=== PATIENT | female | born 1940 | race Caucasian/White ===

== ENCOUNTER → 2016-04-28 | Day surgery (SDC) | payer MEDICARE, OTHER ==
[2016-04-26 12:30] VITALS: BMI 32.7
[~2016-04-28] MED LIST: ATROPINE OPHTH SOLN 1% 5ML BTL LEFT EYE ONE; BALANCED SALT IRRIG SOLN COMB2 15 ML IRRIG.SOLN IRRIGATION ONE; EPINEPHrine (PF) 0.3 ML in BALANCED SALT IRRIG SOLN COMB2 500 ML IRRIGATION ONE; FLUORESCEIN STRIPS 1 MG STRIP LEFT EYE ONE; HYALURONATE SODIUM INTRAOCULAR 1 EACH SYRINGE (12MG/ML) INTRAOCULA ONE; LACTATED RINGERS 1,000 ML IV ONE; LACTATED RINGERS 1,000 ML IV SCH; LIDOCAINE 1% (PF) 10MG/ML VIAL SQ ONE; MIDAZOLAM 2 MG/2 ML VIAL ONE; MOXIFLOXACIN HCL 0.5% DROPS 3 ML BTL OP ONE; TETRACAINE 0.5% OPHTH (PF) DROPS 4 ML BTL OP ONE; TIMOLOL 0.5% OPHTH SOLN (PF) 0.2 ML DROPERETTE OP ONE; fentaNYL (PF) 50 MCG/ML 2 ML AMP ONE
[2016-04-28] MEDS: CYCLOPENTOLATE 1% OPHTH SOLN 2 ML BTL OP ONE ×3 (07:20→07:32)
[2016-04-28] MEDS: PHENYLEPHRINE 2.5% OPHTH DRP 2ML OP NR ×3 (07:23→07:35)
[2016-04-28 07:45] LABS: Glucose,Whole Blood 85 mg/dL (75-99)
[2016-04-28 07:47] VITALS: RESP 16; TEMP 97.1
--- NOTE | 2016-04-28 09:55 | P.OP ---
Date of Procedure: 04/28/16 Preoperative Diagnosis: NS & CS Postoperative Diagnosis: same Procedure(s) Performed: PIOL, OS Implants: AO1UV 22.50 Anesthesia: MAC Surgeon: Vladimir Bolanos Estimated Blood Loss (ml): 0 Pathology: none sent Condition: stable Disposition: same day Indications for Procedure: vision blurry Operative Findings: no complications
[2016-04-28 10:29] VITALS: BP 109/65; PULSE 50
--- NOTE | 2016-04-28 21:42 | OP ---
DATE OF SERVICE: SURGEON: SHABBIR FINE MD MENAGERIE SUPERINTENDENT: PREOPERATIVE DIAGNOSES: Nuclear sclerosis and cortical sclerosis POSTOPERATIVE DIAGNOSES: Nuclear sclerosis and cortical sclerosis OPERATION: Phacoemulsification of cataract and intraocular lens implant of the left eye. ANESTHESIA: Topical. ESTIMATED BLOOD LOSS: None. SPECIMENS REMOVED: None. COMPLICATIONS: OPERATIVE FINDINGS: DESCRIPTION OF PROCEDURE: NARRATIVE: After obtaining the appropriate consent, the patient was brought to the operating room. There she was placed under cardiac monitoring, prepped and draped in the usual sterile manner. She was approached from her left temporal side. A 5.5 mm Azalia ring inked in gentian rut was then placed centrally on her eye. At the 5:00 position a 1.1 mm stab blade was used to create a paracentesis port. Through this opening, 1% Xylocaine MPF 50-50 mix with balance salt solution was injected into the anterior chamber. This was followed by stabilization of the anterior chamber with Amvisc. At the 3:00 position a 2.5 mm HUMI 2.75 mm jt keratome was used to create a patent cell self-sealing corneal flap incision in a Langerman fashion. Through this opening, a cystotome was used to begin a continuous tear capsulorrhexis, which was completed using the Utrata forceps. Care were taken care was taken to ensure the size of the rhexis was at least the size of the alaina previously placed on the cornea. Hydrodissection and hydrodelineation of the lens was accomplished with balanced salt solution. Phacoemulsification of the lens utilizing phaco chop was accomplished in 14 seconds at 9% power. Additional Xylocaine MPF was instilled into the anterior chamber. This was followed by removal of the remaining cortical material under irrigation and aspiration as well as careful polishing of the posterior capsule in capsule vacuum mode. Additional Amvisc was again used to stabilize the capsular bag, and using the pappose [place] capsular polishing instruments, care was taken to ensure removal of all noted cortical debris from the equator of the capsular bag. Additional Amvisc was then used to stabilize the anterior chamber. The temporal incision was enlarged slightly with the jt knife and a [employer] Crystal lens model AO1UV 22.5 diopter posterior chamber intraocular lens was then injected into the capsular bag without difficulty. The lens was rotated approximately 270 degrees ensuring that there was no residual cortical material in the equator and the irrigation/aspiration instrument was brought in to remove the remaining viscoelastic material from in and around the intraocular lens in the anterior chamber. The eye was brought to normal intraocular pressure through the paracentesis port. The incisions were confirmed watertight with a fluorescein strip. She then received 2 drops of 0.5% timolol followed by 2 drops of Vigamox as well as drop of 1% atropine. She was then lightly patched and shielded in the usual manner. There were no complications from the procedure. She tolerated the procedure well and was returned to outpatient recovery in good condition.
== END | disposition home or self-care (01) ==
LOC: OR 06:58
PROVIDERS: ATTEND Ophthalmology
DX: H25.13 Age-related nuclear cataract, bilateral (principal); H25.013 Cortical age-related cataract, bilateral; H04.123 Dry eye syndrome of bilateral lacrimal glands; H52.4 Presbyopia; H52.13 Myopia, bilateral; E11.69 Type 2 diabetes mellitus with other specified complication; E11.65 Type 2 diabetes mellitus with hyperglycemia; I10 Essential (primary) hypertension; E78.5 Hyperlipidemia, unspecified; E07.9 Disorder of thyroid, unspecified; Z79.4 Long term (current) use of insulin; Z79.899 Other long term (current) drug therapy
CPT/HCPCS: 66984; V2632; V2788; J2250; J0171; J3010; J2001; 99152; 99153

== ENCOUNTER → 2017-09-08 | Outpatient (CLI) | payer MEDICARE ==
--- NOTE | 2017-09-08 18:28 | BD ---
EXAMINATION TYPE: Axial Bone Density DATE OF EXAM: 09/08/2017 CLINICAL HISTORY: Height: 62 inches Weight: 179 FRAX RISK QUESTIONS: Alcohol (3 or more units per day): no Family History (Parent hip fracture): no Glucocorticoids (More than 3mos): no (Ex: prednisone, prednisolone, methylprednisolone, dexamethasone, and hydrocortisone). History of Fracture in Adulthood: finger Secondary Osteoporosis: 1. Type 1 Diabetes: no 2. Hyperthyroidism: no 3. Menopause before 45: hysterectomy age 38 4. Malnutrition: no 5. Chronic liver disease: no Rheumatoid Arthritis: no Current Tobacco Use: no RISK FACTORS HISTORY OF: Family History of Osteoporosis: unsure Active: no Diet low in dairy products/other sources of calcium: no Postmenopausal woman: yes Take estrogen and/or progesterone medications: not now How long: hormonal contraceptives about 6 months Lost more than 2 inches in height since high school: no Frequent falls: no Poor Health: no Hyperparathyroidism: no Adrenal Insufficiency: no MEDICATIONS: Prednisone or other steroids: no Thyroid Medications: yes Which medication: Synthroid How Long: over 45 years Osteoporosis Medications: not now Which medication: Actonel How Long: unsure Additional Medications: insulin , lisinopril, lovastatin, Novalog, Levamir, D3 & calcium Additional History: type II diabetic; right knee replacement EXAM MEASUREMENTS: Bone mineral densitometry was performed using the VivaSmart System. Bone mineral density as measured about the Lumbar spine is: ----- L1-L4(G/cm2): 1.345 T Score Values are as follows: ----- L2: 2.5 ----- L3: 2.5 ----- L4: 0.3 ----- L1-L4: 1.4 Bone mineral density has: Decreased -2.8% since study of: 07/27/2013 Bone mineral density about the R hip (g/cm2): 0.984 Bone mineral density about the L hip (g/cm2): 0.952 T Score values are as follows: -----R Neck: -0.4 -----L Neck: -0.6 -----R Total: 0.3 -----L Total: 0.4 Bone mineral density has: Decreased -6.8% since study of: 07/27/2013 IMPRESSION: Normal (Values between +1 and -1 indicate normal bone mass). Consider repeating this study in 5 year s or sooner if there is some new clinical indication. NOTE: T-SCORE=SD OF THE YOUNG ADULT MEAN.
--- NOTE | 2017-09-12 12:46 | MM ---
Reason for exam: screening (asymptomatic). Last mammogram was performed 1 year and 2 months ago. History: Patient is postmenopausal. Family history of breast cancer in 2 maternal aunts and breast cancer in sister at age 60. Benign right mammotome panel of the right breast, May 18, 2006. Cyst aspiration of the left breast, 1979. 2 excisional biopsies of the left breast, 1979. Took hormonal contraceptives for 6 months. Physical Findings: A clinical breast exam by your physician is recommended on an annual basis and results should be correlated with mammographic findings. MG 3D Screening Mammo W/Cad Bilateral CC and MLO view(s) were taken. Prior study comparison: June 24, 2016, mammogram, performed at [facility]. July 31, 2015, bilateral MG 3d screening mammo w/cad. July 29, 2014, bilateral MG screening mammo w CAD. There are scattered fibroglandular densities. No significant changes when compared with prior studies. ASSESSMENT: Benign, BI-RAD 2 RECOMMENDATION: Routine screening mammogram of both breasts in 1 year.
== END | disposition home or self-care (01) ==
LOC: RADMAMWWP 10:12
PROVIDERS: ATTEND Internal Medicine
DX: Z12.31 Encounter for screening mammogram for malignant neoplasm of breast (principal); Z78.0 Asymptomatic menopausal state
CPT/HCPCS: 77063; 77067; 77080

== ENCOUNTER → 2018-11-07 | Outpatient (CLI) | payer MEDICARE ==
[2018-11-07 16:48] LABS: Basophils % (A) 1 %; Eosinophils # (A) 0.1 k/uL (0-0.7); Eosinophils % (A) 3 %; HCT 35.2 % (34.0-46.0); Lymphocytes # (A) 1.8 k/uL (1.0-4.8); Lymphocytes % (A) 36 %; MCH 33.7 pg (25.0-35.0); MCHC 34.1 g/dL (31.0-37.0); Mean Platelet Volume 6.8; Monocytes # (A) 0.4 k/uL (0-1.0); Monocytes % (A) 8 %; Neutrophils # (A) 2.5 k/uL (1.3-7.7); Neutrophils % (A) 49 %; Platelet Count 164 k/uL (150-450); RBC 3.56 m/uL (3.80-5.40)
[2018-11-07 17:04] LABS: Potassium 4.8 mmol/L (3.5-5.1)
== END | disposition home or self-care (01) ==
LOC: LABPAT 16:21
PROVIDERS: ATTEND Surgery
DX: Z01.812 Encounter for preprocedural laboratory examination (principal); I73.9 Peripheral vascular disease, unspecified
CPT/HCPCS: 36415; 80051; 82565; 84520; 85025

== ENCOUNTER 2018-11-17 08:58 | Day surgery (SDC) | payer MEDICARE ==
[2018-11-10 16:22] VITALS: BMI 32.9
[~2018-11-17 08:58] MED LIST changes: +ALPRAZolam 0.25 MG TAB PO PRN; +ASPIRIN 325 MG TAB PO STA; -ATROPINE OPHTH SOLN 1% 5ML BTL LEFT EYE ONE; -BALANCED SALT IRRIG SOLN COMB2 15 ML IRRIG.SOLN IRRIGATION ONE; -EPINEPHrine (PF) 0.3 ML in BALANCED SALT IRRIG SOLN COMB2 500 ML IRRIGATION ONE; -FLUORESCEIN STRIPS 1 MG STRIP LEFT EYE ONE; -HYALURONATE SODIUM INTRAOCULAR 1 EACH SYRINGE (12MG/ML) INTRAOCULA ONE; -LACTATED RINGERS 1,000 ML IV ONE; -LACTATED RINGERS 1,000 ML IV SCH; -LIDOCAINE 1% (PF) 10MG/ML VIAL SQ ONE; -MIDAZOLAM 2 MG/2 ML VIAL ONE; -MOXIFLOXACIN HCL 0.5% DROPS 3 ML BTL OP ONE; +SODIUM CHLORIDE 0.9% 1,000 ML in EMPTY BAG 1 BAG IV ONE; -TETRACAINE 0.5% OPHTH (PF) DROPS 4 ML BTL OP ONE; -TIMOLOL 0.5% OPHTH SOLN (PF) 0.2 ML DROPERETTE OP ONE; -fentaNYL (PF) 50 MCG/ML 2 ML AMP ONE
[2018-11-17 09:17] VITALS: TEMP 97.8
[2018-11-17 09:33] LABS: Glucose,Whole Blood 125 mg/dL (75-99)
[2018-11-17] MEDS ORDERED: IOPAMIDOL-250 100ML BTL INTRAARTER ONE ×2 (10:30)
--- NOTE | 2018-11-17 10:37 | P.OP ---
Date of Procedure: 11/17/18 Indications for Procedure: 78-year-old female who originally presented to the office secondary to lower extremity pain with ambulation. Patient states she is unable to ambulate farther then 100 feet without significant discomfort in her left calf. Patient states this feels exactly like it did previously prior to her bypass surgery. She underwent arterial Doppler which demonstrated ABIs of 0.48 on the left. She presents today for aortogram with bilateral lower extremity runoff. 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 Iliacs: Bilateral common iliac, external iliac and internal iliac arteries are patent with mild atherosclerotic disease without stenosis Femorals: Bilateral common femoral arteries are patent with mild atherosclerotic disease. The right SFA is occluded chronically with a right femoral popliteal bypass graft that is patent. Left SFA is patent at the takeoff as well as the profundus femoris with minimal atherosclerotic disease. Distal SFA on the left after Buck's canal demonstrates chronic total occlusion extending across the popliteal to the below-knee tibioperoneal trunk. Popliteal: Right popliteal artery is patent. Distal aspect of the anastomosis shows some mild narrowing. Left popliteal artery is occluded with reconstitution he had the knee. Tibials: Patent bilateral tibial arteries below knee after reconstitution of the left with extension down to the ankle with two-vessel runoff. Operative narrative: After written informed consent was obtained the patient all risks benefits competitions were described the patient is brought to the Administrative Hearing Officer and laid in a supine position. The area of the left arm was prepped and draped in the usual sterile fashion. Local anesthesia with moderate sedation was performed with continuous pulse ox monitoring and EKG monitoring. Utilizing ultrasound the left brachial artery was visualized and shown to be patent without any significant plaque. Utilizing a multipurpose needle under ultrasound guidance the artery was accessed. Guidewire was placed followed by 5-Indonesian sheath. 035 Glidewire was then placed into the aorta followed by pigtail catheter. Angiogram was then obtained of the aorta. Catheter was then placed at the bifurcation and lower extremity runoffs were obtained. Once completed all guidewires, catheters. Sheath was accidently pulled and patient developed a hematoma. Pressure was placed and bleeding was controlled. Pressure dressing was placed and patient will be monitored in recovery for 6 hours and then we will obtain formal ultrasound of the arm.
--- NOTE | 2018-11-17 12:22 | IR ---
Fluoroscopy HISTORY: Peripheral vascular occlusive disease 4.7 minutes fluoroscopy time supplied to the referring clinician. 89 intraoperative C-arm images doc ument the procedure. See dictated report from vascular surgery.
[2018-11-17 12:59] VITALS: PULSE 52
--- NOTE | 2018-11-17 16:49 | US ---
EXAMINATION TYPE: US upper ext pseudo LT DATE OF EXAM: 11/17/2018 COMPARISON: NONE CLINICAL HISTORY: left brachial artery pseudoaneurysm. Pt had recent procedure with right brachial ar lila approach Left medial upper arm scanned to visualize left brachial artery post procedure/ Grayscale, color Doppler imaging performed at the level of the patient's puncture site. Blood flow vi sualized distal to puncture site/no evident pseudoaneurysm. Mixed echogenicity at the level of the puncture site within the soft tissues may represent a hematoma . Triphasic waveform noted within the left brachial artery. No evident arteriovenous fistula. IMPRESSION: Correlate to exclude brachial sheath hematoma. No evident pseudoaneurysm.
--- NOTE | 2018-11-17 16:53 | P.PN ---
Progress Note - Text Progress Note Date: 11/17/18 Reviewed ultrasound of left upper extremity. Hematoma noted but no evidence of active bleeding or pseudoaneurysm. Left upper extremity is stable and patients states pain is improved now a 06/11. Will continue pressure dressing and patient ok for d/c home. Will have her follow up in office Tuesday. Patient to call the office Tuesday.
[2018-11-17 17:45] VITALS: BP 127/77; RESP 20
== END 2018-11-17 17:30 | disposition home or self-care (01) ==
LOC: CATHCVL 08:58
PROVIDERS: ATTEND Surgery
DX: I70.212 Atherosclerosis of native arteries of extremities with intermittent claudication, left leg (principal); I70.92 Chronic total occlusion of artery of the extremities; Z82.49 Family history of ischemic heart disease and other diseases of the circulatory system; Z82.0 Family history of epilepsy and other diseases of the nervous system
CPT/HCPCS: 36200; 75625; 75716; 76937; 93931; C1894; C1769 ×3; Q9966

== ENCOUNTER → 2020-01-02 | Outpatient (CLI) | payer MEDICARE ==
--- NOTE | 2020-01-04 10:23 | MM ---
Reason for exam: screening (asymptomatic). Last mammogram was performed 1 year and 3 months ago. History: Patient is postmenopausal. Family history of breast cancer in 2 maternal aunts and breast cancer in sister at age 60. Benign right mammotome panel of the right breast, May 18, 2006. Cyst aspiration of the left breast, 1979. 2 excisional biopsies of the left breast, 1979. Took hormonal contraceptives for 6 months. MG 3D Screening Mammo W/Cad Bilateral CC, MLO, and XCCL view(s) were taken. Prior study comparison: September 26, 2018, bilateral MG 3d screening mammo w/cad. September 08, 2017, bilateral MG 3d screening mammo w/cad. There are scattered fibroglandular densities. Previous mammotome biopsy in the right breast. No significant changes when compared with prior studies. ASSESSMENT: Benign, BI-RAD 2 RECOMMENDATION: Routine screening mammogram of both breasts in 1 year.
== END | disposition home or self-care (01) ==
LOC: RADMAMWWP 16:05
PROVIDERS: ATTEND Internal Medicine
DX: Z12.31 Encounter for screening mammogram for malignant neoplasm of breast (principal); Z80.3 Family history of malignant neoplasm of breast
CPT/HCPCS: 77063; 77067

== ENCOUNTER → 2021-03-24 | Outpatient (CLI) | payer MEDICARE | END | disposition home or self-care (01) | LOC: RADMAMWWP 13:34 | PROVIDERS: ATTEND Internal Medicine | DX: Z12.31 Encounter for screening mammogram for malignant neoplasm of breast (principal) | CPT/HCPCS: 77063; 77067 ==

== ENCOUNTER 2021-06-23 01:29 | Observation (INO) | payer MEDICARE ==
[2021-06-23 01:33] VITALS: TEMP 98.1
[2021-06-23] MEDS ORDERED: ENALAPRILAT 1.25 MG/ML 1 ML VIAL IVP STA (01:44)
[2021-06-23] MEDS ORDERED: NITROGLYCERIN SL TABS 0.4 MG TAB SUBLINGUAL STA (01:59)
[2021-06-23] MEDS ORDERED: ASPIRIN 81 MG PO STA (01:59)
--- NOTE | 2021-06-23 01:59 | ED ---
Chest Pain HPI - General Chief Complaint: Chest Pain Stated Complaint: Chest Pressure Time Seen by Provider: 06/23/21 01:43 Source: patient Mode of arrival: ambulatory Limitations: no limitations - History of Present Illness Initial Comments: 's patient is a 81-year-old woman who presents to have evaluation for substernal chest pain. She states that is been going on for 3-4 days but was very brief. Tonight it came on around 10 PM while she was reading. She describes it as a heavy feeling, very mild intensity 2 out of 10. She has not noted worsening or relieving factors. No associated symptoms. MD Complaint: chest pain Onset/Timin -: hour(s) Onset: during rest Pain Location: substernal Pain Radiation: none Severity: mild Severity scale (1-10): 2 Quality: tightness Consistency: constant Improves With: nothing Worsens With: nothing Treatments Prior to Arrival: none - Related Data Home Medications Medication Instructions Recorded Confirmed Levothyroxine Sodium [Synthroid] 68.5 mcg PO 06/10/14 06/23/21 Lovastatin [Mevacor] 40 mg PO 06/10/14 06/23/21 lisinopriL [Prinivil] 20 mg PO 06/10/14 06/23/21 Ascorbic Acid [Vitamin C] 1,000 mg PO 11/10/18 06/23/21 Cholecalciferol (Vitamin D3) 50 mcg PO W/BRKFST 11/10/18 06/23/21 [Vitamin D3] Cinnamon Bark [Cinnamon] 500 mg PO W/BRKFST 11/10/18 06/23/21 Cyanocobalamin [Vitamin B-12] 500 mcg PO 11/10/18 06/23/21 Magnesium 400 mg PO 11/10/18 06/23/21 Potassium 99 mg PO W/BRKFST 11/10/18 06/23/21 Vitamin B Complex 1 cap PO W/BRKFST 11/10/18 06/23/21 Vitamin E (Dl,Tocopheryl Acet) 400 unit PO TID 11/10/18 06/23/21 [Vitamin E (400 Iu = 180 mg)] Aspirin EC [Ecotrin Low Dose] 81 mg PO W/BRKFST 06/23/21 06/23/21 Biotin 5 mg PO W/BRKFST 06/23/21 06/23/21 Calcium Carbonate [Calcium] 600 mg PO W/BRKFST 06/23/21 06/23/21 Ferrous Sulfate [Iron (65 MG 325 mg PO SUTUTHSA@0800 06/23/21 06/23/21 Elemental)] Insulin Aspart [NovoLOG Flexpen] 6 units SQ AC-BID@0800,1200 06/23/21 06/23/21 Insulin Aspart [NovoLOG Flexpen] 7 units SQ W/SUPPER 06/23/21 06/23/21 Insulin Glargine,Hum.rec.anlog 12 units SQ HS 06/23/21 06/23/21 [Toujeo Solostar] Levothyroxine Sodium [Synthroid] 137 mcg PO DAILY 06/23/21 06/23/21 Turmeric Root Extract [Turmeric] 500 mg PO W/BRKFST 06/23/21 06/23/21 Previous Rx's Medication Instructions Recorded Isosorbide Mononitrate ER [Imdur] 30 mg PO DAILY 30 Days #30 tablet 06/23/21 Allergies Allergy/AdvReac Type Severity Reaction Status Date / Time adhesive tape Allergy Rash/Hives Verified 06/23/21 07:52 and pulls off skin shellfish derived [Shrimp] AdvReac Vomiting Verified 06/23/21 07:52 Review of Systems ROS Statement: Those systems with pertinent positive or pertinent negative responses have been documented in the HPI. ROS Other: All systems not noted in ROS Statement are negative. Constitutional: Denies: fever, chills Respiratory: Denies: cough, dyspnea Cardiovascular: Reports: chest pain. Denies: palpitations Gastrointestinal: Denies: abdominal pain, nausea, vomiting, melena, hematochezia Genitourinary: Denies: dysuria, hematuria Musculoskeletal: Denies: back pain Skin: Denies: rash Neurological: Denies: headache, weakness, numbness EKG Findings - EKG Comments: EKG Findings:: There appears to be some mild ST depressions. - EKG Results: EKG: interpreted by [place], sinus rhythm (Rate 60 bpm), normal axis, normal QRS Past Medical History Past Medical History: Blood Disorder, Diabetes Mellitus, Hyperlipidemia, Hypertension, Thyroid Disorder, Vascular Disorder Additional Past Medical History / Comment(s): heart murmur, varicose veins, hx. of blockage rt leg, PAD, Dx with factor V, hx. of anemia. History of Any Multi-Drug Resistant Organisms: None Reported Past Surgical History: Appendectomy, Breast Surgery, Cholecystectomy, Hysterectomy, Orthopedic Surgery Additional Past Surgical History / Comment(s): Aortogram 06/12/14, trigger finger left hand x4, rt leg bypass, left bunionectomy and heel spur, varicose vein surgery. Breast bx.'s x 3- all benign, D & C's. winston knee replacement, winsotn cataracts Past Anesthesia/Blood Transfusion Reactions: No Reported Reaction Additional Past Anesthesia/Blood Transfusion Reaction / Comment(s): vertigo, states BP was elevated for last surgery & had to stay overnight. Past Psychological History: No Psychological Hx Reported Smoking Status: Never smoker Past Alcohol Use History: None Reported Past Drug Use History: None Reported - Past Family History Sister(s) Family Medical History: Cancer Additional Family Medical History / Comment(s): Breast Father Family Medical History: Cancer Additional Family Medical History / Comment(s): Sarcoma in foot. Brother(s) Family Medical History: Blood Disorder, Cancer General Exam Limitations: no limitations General appearance: alert, in no apparent distress Head exam: Present: atraumatic, normocephalic Eye exam: Present: normal appearance. Absent: scleral icterus, conjunctival injection ENT exam: Present: normal oropharynx Neck exam: Present: normal inspection Respiratory exam: Present: normal lung sounds bilaterally. Absent: respiratory distress, wheezes, rales, rhonchi, stridor, chest wall tenderness Cardiovascular Exam: Present: regular rate, normal rhythm, normal heart sounds. Absent: systolic murmur, diastolic murmur, rubs, gallop GI/Abdominal exam: Present: soft. Absent: distended, tenderness, guarding, rebound, rigid, mass Extremities exam: Present: normal inspection, normal capillary refill. Absent: pedal edema, calf tenderness Back exam: Present: normal inspection. Absent: CVA tenderness (R), CVA tenderness (L) Neurological exam: Present: alert Skin exam: Present: warm, dry, intact, normal color. Absent: rash Course Vital Signs 06/23/21 06/23/21 06/23/21 01:30 02:15 02:30 Temperature 98.1 F Pulse Rate 72 69 54 L Respiratory 18 16 15 Rate Blood Pressure 223/79 175/72 163/63 O2 Sat by Pulse 94 L 94 L 100 Oximetry 06/23/21 06/23/21 06/23/21 02:40 03:42 06:17 Temperature Pulse Rate 57 L 57 L 57 L Respiratory 17 16 18 Rate Blood Pressure 96/61 145/64 123/50 O2 Sat by Pulse 99 94 L 98 Oximetry Disposition Clinical Impression: Chest pain Disposition: ADMITTED IP TO THIS HOSP Condition: Stable Is patient prescribed a controlled substance at d/c from ED?: No
[2021-06-23 02:12] LABS: Basophils % (A) 1 %; Eosinophils # (A) 0.1 k/uL (0-0.7); Eosinophils % (A) 2 %; HCT 36.2 % (34.0-46.0); HGB 12.3 gm/dL (11.4-16.0); Lymphocytes # (A) 2.8 k/uL (1.0-4.8); Lymphocytes % (A) 51 %; MCH 33.9 pg (25.0-35.0); MCHC 33.8 g/dL (31.0-37.0); MCV 100.3 fL (80.0-100.0); Mean Platelet Volume 7.6; Monocytes # (A) 0.4 k/uL (0-1.0); Monocytes % (A) 7 %; Neutrophils # (A) 1.9 k/uL (1.3-7.7); Neutrophils % (A) 36 %; Platelet Count 164 k/uL (150-450); RBC 3.61 m/uL (3.80-5.40); RDW 12.5 % (11.5-15.5); WBC 5.4 k/uL (3.8-10.6)
[2021-06-23 02:23] LABS: Albumin 4.2 g/dL (3.5-5.0); Calcium 9.7 mg/dL (8.4-10.2); Total Bilirubin 0.5 mg/dL (0.2-1.3)
[2021-06-23 02:25] LABS: INR 0.9 (<1.2)
--- NOTE | 2021-06-23 02:37 | XR ---
EXAMINATION TYPE: XR chest 2V DATE OF EXAM: 06/23/2021 COMPARISON: 06/05/2014 HISTORY: Chest pain TECHNIQUE: 2 view FINDINGS: Heart and mediastinum are normal. Lungs are clear of infiltrate. There is no heart failure. There are no hilar masses. There are chest leads. There is 25% wedging of lower thoracic vertebra th at is probably T12. IMPRESSION: No active cardiopulmonary disease. Normal heart. There is T12 compression fracture which is new compared to old exam. Fracture appears old.
[2021-06-23] MEDS ORDERED: SODIUM CHLORIDE 0.9% 500 ML 500 ML IV STA (02:47)
--- NOTE | 2021-06-23 03:18 | CT ---
EXAMINATION TYPE: CT chest angio for PE DATE OF EXAM: 06/23/2021 COMPARISON: None HISTORY: elevated d-dimer CT DLP: 400.5 mGycm Automated exposure control for dose reduction was used. CONTRAST: Performed with IV Contrast, patient injected with 75 mL of Isovue 370. There are Three-D postprocessed images. The lungs are clear of consolidation. There is no evidence of a pulmonary mass. There is no mediastin al adenopathy. There are no hilar masses. Thoracic ureter is intact. No evidence of aneurysm or disse ction. There is no evidence of filling defect in the pulmonary arteries. Upper abdominal soft tissues are in tact. No pleural effusion. The thoracic spine shows 20% anterior wedging of T11. Fracture probably ol d. No focal bone destruction. IMPRESSION: Minimal fibrotic changes at the lung bases. No evidence of pulmonary embolism. T11 mild compression f racture probably old.
[2021-06-23] MEDS ORDERED: NITROGLYCERIN SL TABS 0.4 MG TAB SUBLINGUAL PRN (04:26)
--- NOTE | 2021-06-23 05:24 | P.HPIM ---
History of Present Illness H&P Date: 06/23/21 Patient is a 81-year-old female with a PMH of type II DM, peripheral arterial disease status post multiple stenting, hypertension, hypothyroidism, and hyperlipidemia who presented to the emergency room with complaints of chest discomfort. The patient reports that her symptoms started 2 days ago with intermittent substernal pressure-like chest discomfort, lasting for 1-2 minutes at a time. She reports that the pain was exertional and nonexertional, without associated symptoms, nonradiating, nonpleuritic, without alleviating or exacerbating features. She reports the pain was initially resolving within 1-2 minutes spontaneously but over the past 1 day, has become more persistent. She reports it is 2 out of 10 at maximal intensity, but has been persistent, due to his she decided to come to the emergency room. She denied experiencing shortness of breath, nausea, vomiting, diaphoresis, palpitations, dizziness. Also denied fever, chills, cough, abdominal pain, diarrhea, headaches, visual disturbances. Denied any such pain in the past. EKG emergency room reveals sinus rhythm with minimal ST segment depressions diffusely at 60 bpm. Chest CTA was unremarkable. Laboratory evaluation revealed a troponin less than 0.012. Review of systems: Pertinent positives and negatives as discussed in HPI, a complete review of systems was performed and all other systems are negative. Physical examination: General: non toxic, no distress, appears at stated age, obese Derm: no unusual rashes/lesions no unusual ecchymoses, warm, dry Head: atraumatic, normocephalic, symmetric Eyes: EOMI, no lid lag, anicteric sclera, pupils equal round reactive to light ENT: Nose and ears atraumatic, no thrush, no pharyngeal erythema Neck: No thyromegaly, no cervical lymphadenopathy, trachea midline, supple Mouth: no lip lesion, mucus membranes moist Cardiovascular: S1S2 reg, no murmur, positive posterior tibial pulse bilateral, no edema, capillary refill less than 2 seconds Lungs: CTA bilateral, no rhonchi, no rales , no accessory muscle use Abdominal: soft, nontender to palpation, no guarding, no appreciable organomegaly, normal bowel sounds Ext: no gross muscle atrophy, muscle strength 5 out of 5 in all 4 extremities grossly, no contractures, Neuro: CN II-XI grossly intact, light touch intact all 4 extremities, finger to nose within normal limits, Psych: Alert, oriented, appropriate affect Assessment/plan Chest pain, rule out ACS -Cardiac monitoring -Cardiology consult -Trend troponin -Continue with aspirin and statin Chronic conditions: Type II DM, peripheral arterial disease, hypertension, hyperlipidemia -Continue with home meds DVT prophylaxis -Heparin subcu The patient is admitted with an anticipated less than 2 midnight stay for evaluation of chest pain CODE STATUS: Full Code Discussed with: Patient Anticipated discharge date: in am Anticipated discharge place: Home Past Medical History Past Medical History: Blood Disorder, Diabetes Mellitus, Hyperlipidemia, Hypertension, Thyroid Disorder, Vascular Disorder Additional Past Medical History / Comment(s): heart murmur, varicose veins, hx. of blockage rt leg, PAD, Dx with factor V, hx. of anemia. History of Any Multi-Drug Resistant Organisms: None Reported Past Surgical History: Appendectomy, Breast Surgery, Cholecystectomy, Hysterectomy, Orthopedic Surgery Additional Past Surgical History / Comment(s): Aortogram 06/12/14, trigger finger left hand x4, rt leg bypass, left bunionectomy and heel spur, varicose vein surgery. Breast bx.'s x 3- all benign, D & C's. wintson knee replacement, winston cataracts Past Anesthesia/Blood Transfusion Reactions: No Reported Reaction Additional Past Anesthesia/Blood Transfusion Reaction / Comment(s): vertigo, states BP was elevated for last surgery & had to stay overnight. Past Psychological History: No Psychological Hx Reported Smoking Status: Never smoker Past Alcohol Use History: None Reported Past Drug Use History: None Reported - Past Family History Sister(s) Family Medical History: Cancer Additional Family Medical History / Comment(s): Breast Father Family Medical History: Cancer Additional Family Medical History / Comment(s): Sarcoma in foot. Brother(s) Family Medical History: Blood Disorder, Cancer Medications and Allergies Home Medications Medication Instructions Recorded Confirmed Type Aspirin 81 mg PO DAILY 06/10/14 11/17/18 History Insulin Aspart [NovoLOG Flexpen] 6 units SQ AC-BRKFST 06/10/14 11/17/18 History Insulin Aspart [NovoLOG Flexpen] 6 units SQ AC-LUNCH 06/10/14 11/17/18 History Insulin Aspart [NovoLOG Flexpen] 7 units SQ AC-SUPPER 06/10/14 11/17/18 History Insulin Detemir [Levemir Flextouch 16 units SQ HS 06/10/14 11/17/18 History Pen] Levothyroxine Sodium [Synthroid] 137 mcg PO SUMOTUWEFRSA 06/10/14 11/17/18 History Lovastatin [Mevacor] 40 mg PO HS 06/10/14 11/17/18 History lisinopriL [Prinivil] 20 mg PO HS 06/10/14 11/17/18 History Ascorbic Acid [Vitamin C] 1,000 mg PO DAILY 11/10/18 11/17/18 History Calcium Carbonate/Vitamin D3 1 each PO DAILY 11/10/18 11/17/18 History [Calcium 600-Vit D3 200 Tablet] Cholecalciferol (Vitamin D3) 2,000 unit PO DAILY 11/10/18 11/17/18 History [Vitamin D3] Cinnamon Bark [Cinnamon] 500 mg PO BID 11/10/18 11/17/18 History Cyanocobalamin [Vitamin B-12] 500 mcg PO DAILY 11/10/18 11/17/18 History Insulin Aspart [NovoLOG] 0 units SQ HS PRN 11/10/18 11/17/18 History Magnesium 400 mg PO DAILY 11/10/18 11/17/18 History Potassium 99 mg PO DAILY 11/10/18 11/17/18 History Vitamin B Complex 1 each PO DAILY 11/10/18 11/17/18 History Vitamin C/Biotin [Hair, Skin and 1 tab PO DAILY 11/10/18 11/17/18 History Nails] Vitamin E (Dl,Tocopheryl Acet) 400 unit PO TID 11/10/18 11/17/18 History [Vitamin E] Allergies Allergy/AdvReac Type Severity Reaction Status Date / Time adhesive tape Allergy Rash/Hives Verified 06/23/21 01:33 shellfish derived [Shrimp] AdvReac Vomiting Verified 06/23/21 01:33 Physical Exam Vitals: Vital Signs Temp Pulse Resp BP Pulse Ox 06/23/21 03:42 57 L 16 145/64 94 L 06/23/21 02:40 57 L 17 96/61 99 06/23/21 02:30 54 L 15 163/63 100 06/23/21 02:15 69 16 175/72 94 L 06/23/21 01:30 98.1 F 72 18 223/79 94 L Intake and Output 0306/22/21 06/23/21 14:59 22:59 06:59 Other: Weight 80.286 kg Results CBC & Chem 7: 06/23/21 02:00 06/23/21 02:00 Labs: Abnormal Lab Results - Last 24 Hours (Table) 06/23/21 06/23/21 06/23/21 Range/Units 02:00 02:00 02:00 RBC 3.61 L (3.80-5.40) m/uL MCV 100.3 H (80.0-100.0) fL D-Dimer 2.79 H (<0.60) mg/L FEU Sodium 135 L (137-145) mmol/L BUN 24 H (7-17) mg/dL
[2021-06-23 07:22] LABS: Glucose,Whole Blood 115 mg/dL (75-99)
[2021-06-23] MEDS ORDERED: INSULIN ASPART (NovoLOG) 100 UNIT/ML VIAL SQ SCH (07:30)
--- NOTE | 2021-06-23 07:35 | P.CRDCN ---
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 She describes it as a pressure-like sensation in the precordial area that has been going on for the last one week but has gotten particularly worse over the last 24 hours. Initially it was lasting about one to 2 minutes and no flatus lasting for about 10 minutes there are no clear-cut relieving or exacerbating factors there are no associated symptoms. Pain did not radiate to neck, back and patient has gradually became chest pain-free and seems comfortable and free of symptoms at the time of my evaluation the emergency room. In EKG shows sinus rhythm with diffuse ST-T wave changes raising the possibility of underlying ischemia. 2 sets of cardiac enzymes have been negative d-dimer was elevated she wanted went on to have a computed tomography scan of the chest that was negative for pulmonary embolism. Given her symptoms suggestive of unstable angina I advised the patient to undergo cardiac catheterization for further evaluation I explained to her the risks benefits and alternatives she understood and accepted she has seen my associate Dr. Jimenes in 2019 and he will be performing the cardiac catheterization In the meantime we'll treat her with aspirin nitrates beta blockers. I will obtain a 2-D echo to document her LV function. Constitutional: Denies chills. Denies fever. Eyes: Denies blurred vision. Denies pain. Ears, nose, mouth and throat: Denies headache. Denies sore throat. Cardiovascular: Significant for chest pain Denies shortness of breath. Signific ant for intermittent claudication primarily involving the left leg Respiratory: Denies cough. Gastrointestinal: Denies abdominal pain. Denies diarrhea. Denies nausea. Denies vomiting. Musculoskeletal: Denies myalgias. Integumentary: Denies pruritus. Denies rash. Neurological: Denies numbness. Denies weakness. Psychiatric: Denies anxiety. Denies depression. Endocrine: Denies fatigue. Denies weight change. Genitourinary: Denies burning, hematuria, frequency of urination. Hematological: No anemia or excess bleeding. General: The patient is awake and alert, in no distress, and does not appear acutely ill. Skin: Skin is warm and dry and no rashes or lesions are noted. Eye: Pupils are equal, round and reactive to light, extra-ocular movements are intact; there is normal conjunctiva bilaterally. Ears, nose, mouth and throat: There are moist mucous membranes and no oral lesions. Neck: The neck is supple, there is no tenderness or JVD. Cardiovascular: There is a regular rate and rhythm. No murmur, rub or gallop is appreciated. Respiratory: Lungs are clear to auscultation, respirations are non-labored, breath sounds are equal. Gastrointestinal: Soft, non-distended, non-tender abdomen without masses or organomegaly noted. There is no rebound or guarding present. Bowel sounds are unremarkable. Back: There is no tenderness to palpation in the midline. There is no obvious deformity. Musculoskeletal: Normal ROM, no tenderness, There is no pedal edema. There is no calf tenderness or swelling. Extremities: No edema. Vascular: Femoral pulse is normal. Posterior tibial pulses are diminished on the left side.Dorsalis pedis is diminished on the left side Neurological: CN II-XII intact. There are no obvious motor or sensory deficits. Speech is normal. Psychiatric: Cooperative, appropriate mood & affect, normal judgment. Labs: Hemoglobin is normal at 12.3 platelet count is 164 potassium is 4 creatinine is 1 d-dimer is elevated but the computed tomography scan of the chest is negative for pulmonary embolism 2 sets of troponins are negative EKG: Normal sinus rhythm with ST-T wave changes Assessment and plan: Unstable angina Hypertension Diabetes Peripheral vascular disease I will check an echocardiogram due to her for a cardiac Past Medical History Past Medical History: Blood Disorder, Diabetes Mellitus, Hyperlipidemia, Hypertension, Thyroid Disorder, Vascular Disorder Additional Past Medical History / Comment(s): heart murmur, varicose veins, hx. of blockage rt leg, PAD, Dx with factor V, hx. of anemia. History of Any Multi-Drug Resistant Organisms: None Reported Past Surgical History: Appendectomy, Breast Surgery, Cholecystectomy, Hysterectomy, Orthopedic Surgery Additional Past Surgical History / Comment(s): Aortogram 06/12/14, trigger finger left hand x4, rt leg bypass, left bunionectomy and heel spur, varicose vein surgery. Breast bx.'s x 3- all benign, D & C's. winston knee replacement, winston c ataracts Past Anesthesia/Blood Transfusion Reactions: No Reported Reaction Additional Past Anesthesia/Blood Transfusion Reaction / Comment(s): vertigo, states BP was elevated for last surgery & had to stay overnight. Past Psychological History: No Psychological Hx Reported Smoking Status: Never smoker Past Alcohol Use History: None Reported Past Drug Use History: None Reported - Past Family History Sister(s) Family Medical History: Cancer Additional Family Medical History / Comment(s): Breast Father Family Medical History: Cancer Additional Family Medical History / Comment(s): Sarcoma in foot. Brother(s) Family Medical History: Blood Disorder, Cancer Medications and Allergies Home Medications Medication Instructions Recorded Confirmed Type Aspirin 81 mg PO DAILY 06/10/14 11/17/18 History Insulin Aspart [NovoLOG Flexpen] 6 units SQ AC-BRKFST 06/10/14 11/17/18 History Insulin Aspart [NovoLOG Flexpen] 6 units SQ AC-LUNCH 06/10/14 11/17/18 History Insulin Aspart [NovoLOG Flexpen] 7 units SQ AC-SUPPER 06/10/14 11/17/18 History Insulin Detemir [Levemir Flextouch 16 units SQ HS 06/10/14 11/17/18 History Pen] Levothyroxine Sodium [Synthroid] 137 mcg PO SUMOTUWEFRSA 06/10/14 11/17/18 History Lovastatin [Mevacor] 40 mg PO HS 06/10/14 11/17/18 History lisinopriL [Prinivil] 20 mg PO HS 06/10/14 11/17/18 History Ascorbic Acid [Vitamin C] 1,000 mg PO DAILY 11/10/18 11/17/18 History Calcium Carbonate/Vitamin D3 1 each PO DAILY 11/10/18 11/17/18 History [Calcium 600-Vit D3 200 Tablet] Cholecalciferol (Vitamin D3) 2,000 unit PO DAILY 11/10/18 11/17/18 History [Vitamin D3] Cinnamon Bark [Cinnamon] 500 mg PO BID 11/10/18 11/17/18 History Cyanocobalamin [Vitamin B-12] 500 mcg PO DAILY 11/10/18 11/17/18 History Insulin Aspart [NovoLOG] 0 units SQ HS PRN 11/10/18 11/17/18 History Magnesium 400 mg PO DAILY 11/10/18 11/17/18 History Potassium 99 mg PO DAILY 08/09/19 08/16/19 History Vitamin B Complex 1 each PO DAILY 11/10/18 11/17/18 History Vitamin C/Biotin [Hair, Skin and 1 tab PO DAILY 11/10/18 11/17/18 History Nails] Vitamin E (Dl,Tocopheryl Acet) 400 unit PO TID 11/10/18 11/17/18 History [Vitamin E] Allergies Allergy/AdvReac Type Severity Reaction Status Date / Time adhesive tape Allergy Rash/Hives Verified 06/23/21 01:33 shellfish derived [Shrimp] AdvReac Vomiting Verified 06/23/21 01:33 Physical Exam Vitals: Vital Signs Temp Pulse Resp BP Pulse Ox 06/23/21 06:17 57 L 18 123/50 98 06/23/21 03:42 57 L 16 145/64 94 L 06/23/21 02:40 57 L 17 96/61 99 06/23/21 02:30 54 L 15 163/63 100 06/23/21 02:15 69 16 175/72 94 L 06/23/21 01:30 98.1 F 72 18 223/79 94 L Intake and Output 06/22/21 06/23/21 06/23/21 22:59 06:59 14:59 Other: Weight 80.286 kg Results 06/23/21 02:00 06/23/21 02:00 Cardiac Enzymes 06/23/21 06/23/21 06/23/21 Range/Units 02:00 02:00 06:13 AST 31 (14-36) U/L Troponin I <0.012 <0.012 (0.000-0.034) ng/mL Coagulation 06/23/21 Range/Units 02:00 PT 10.0 (9.0-12.0) sec APTT 24.0 (22.0-30.0) sec CBC 06/23/21 Range/Units 02:00 WBC 5.4 (3.8-10.6) k/uL RBC 3.61 L (3.80-5.40) m/uL Hgb 12.3 (11.4-16.0) gm/dL Hct 36.2 (34.0-46.0) % Plt Count 164 (150-450) k/uL Comprehensive Metabolic Panel 06/23/21 Range/Units 02:00 Sodium 135 L (137-145) mmol/L Potassium 4.0 (3.5-5.1) mmol/L Chloride 98 (98-107) mmol/L Carbon Dioxide 29 (22-30) mmol/L BUN 24 H (7-17) mg/dL Creatinine 1.04 (0.52-1.04) mg/dL Glucose 99 (74-99) mg/dL Calcium 9.7 (8.4-10.2) mg/dL AST 31 (14-36) U/L ALT 18 (4-34) U/L Alkaline Phosphatase 73 (38-126) U/L Total Protein 7.0 (6.3-8.2) g/dL Albumin 4.2 (3.5-5.0) g/dL Current Medications Generic Name Dose Route Start Last Admin Trade Name Freq PRN Reason Stop Dose Admin Aspirin 325 mg 06/24/21 09:00 Aspirin 325 Mg Tab PO DAILY [facility] Heparin Sodium (Porcine) 5,000 unit 06/23/21 09:00 Heparin Sodium,Porcine/Pf 5,000 Unit/0.5 Ml Syringe SQ Q12HR [facility] Insulin Aspart 0 unit 06/23/21 07:30 06/23/21 07:25 Insulin Aspart (Novolog) 100 Unit/Ml Vial SQ Not Given ACHS [facility] Protocol Nitroglycerin 0.4 mg 06/23/21 04:26 Nitroglycerin Sl Tabs 0.4 Mg Tab SUBLINGUAL Q5M PRN Chest Pain Intake and Output 06/22/21 06/23/21 06/23/21 22:59 06:59 14:59 Other: Weight 80.286 kg 06/23/21 02:00 06/23/21 02:00
[2021-06-23] MEDS ORDERED: HEPARIN SODIUM 1,000 UN/ML (10ML VL) IV PRN (08:29)
[2021-06-23] MEDS ORDERED: ALPRAZolam 0.5 MG TAB PO PRN (08:30)
[2021-06-23] MEDS ORDERED: ALPRAZolam 0.25 MG TAB PO PRN (08:30)
[2021-06-23] MEDS ORDERED: HEPARIN SOD,PORK IN 0.45% NACL 25,000 UNIT in 0.45% NACL 1 250ML.BAG IV SCH (08:30)
[2021-06-23] MEDS ORDERED: ATORVASTATIN 80 MG TAB PO STA (08:30)
[2021-06-23] MEDS ORDERED: SODIUM CHLORIDE 0.9% 1,000 ML in EMPTY BAG 1 BAG IV SCH (08:30)
[2021-06-23] MEDS ORDERED: HEPARIN SODIUM,PORCINE/PF 5,000 UNIT/0.5 ML SYRINGE SQ SCH (09:00)
[2021-06-23 09:02] LABS: Partial Thromboplastin Time 25.7 sec (22.0-30.0); Prothrombin Time 10.5 sec (9.0-12.0)
--- NOTE | 2021-06-23 10:26 | ECHOF ---
Referral Reason: MEASUREMENTS -------- HEIGHT: 157.5 cm WEIGHT: 80.3 kg BP: 123/50 RVIDd: 2.7 cm (< 3.3) IVSd: 1.1 cm (0.6 - 1.1) LVIDd: 4.0 cm (3.9 - 5.3) LVPWd: 1.0 cm (0.6 - 1.1) IVSs: 1.5 cm LVIDs: 2.4 cm LVPWs: 1.4 cm LA Diam: 2.8 cm (2.7 - 3.8) Ao Diam: 3.4 cm (2.0 - 3.7) AV Cusp: 2.1 cm (1.5 - 2.6) MV EXCURSION: 10.933 mm (> 18.000) MV EF SLOPE: 49 mm/s (70 - 150) EPSS: 0.5 cm MV E Ilan: 0.66 m/s MV DecT: 435 ms MV A Ilan: 1.01 m/s MV E/A Ratio: 0.66 RAP: 5.00 mmHg RVSP: 32.02 mmHg FINDINGS -------- Sinus rhythm. This was a technically adequate study. The left ventricular size is normal. There is borderline concentric left ventricular hypertrophy. Overall left ventricular systolic function is normal with, an EF between 60 - 65 %. The right ventricle is normal in size. The left atrium is normal in size. The right atrium is normal in size. Interatrial and interventricular septum intact. The aortic valve is trileaflet, and appears structurally normal. No aortic stenosis or regurgitation. There is trace to mild mitral regurgitation. Mild tricuspid regurgitation present. Right ventricular systolic pressure is normal at < 35 mmHg. The pulmonic valve is normal. The aortic root size is normal. Normal inferior vena cava with normal inspiratory collapse consistent with estimated right atrial pre ssure of 5 mmHg. There is no pericardial effusion. CONCLUSIONS -------- 1. The left ventricular size is normal. 2. There is borderline concentric left ventricular hypertrophy. 3. Overall left ventricular systolic function is normal with, an EF between 60 - 65 %. 4. There is trace to mild mitral regurgitation. 5. Mild tricuspid regurgitation present. 6. There is no pericardial effusion. WRECKER DRIVER: Flavia Vasquez RD
[2021-06-23] MEDS ORDERED: HEPARIN SODIUM 1,000 UN/ML (10ML VL) ONE (12:34)
[2021-06-23] MEDS ORDERED: fentaNYL (PF) 50 MCG/ML 2 ML AMP ONE (12:34)
[2021-06-23] MEDS ORDERED: LIDOCAINE 1% INJ 10MG/ML (20 ML MDV) ONE (12:34)
[2021-06-23] MEDS ORDERED: VERAPAMIL 2.5 MG/ML 2 ML AMP ONE (12:34)
[2021-06-23] MEDS ORDERED: SODIUM CHLORIDE 0.9% 500 ML IV ONE (12:45)
[2021-06-23] MEDS ORDERED: fentaNYL (PF) 50 MCG/ML 2 ML AMP IV ONE (12:56)
[2021-06-23] MEDS ORDERED: MIDAZOLAM 2 MG/2 ML VIAL IV ONE (12:56)
[2021-06-23] MEDS ORDERED: LIDOCAINE 1% INJ 10MG/ML (20 ML MDV) SQ ONE (12:59)
[2021-06-23] MEDS ORDERED: VERAPAMIL SYRINGE (5 MG/10 ML) INTRAARTER ONE (13:03)
[2021-06-23] MEDS ORDERED: HEPARIN SODIUM 1,000 UN/ML (10ML VL) IV ONE (13:10)
[2021-06-23] MEDS ORDERED: IOPAMIDOL-370 125ML BTL INJ ONE (13:12)
[2021-06-23] MEDS ORDERED: RX INFO: IV CONTRAST WAS GIVEN 1 EACH MISC MISCELLANE PRN (13:24)
[2021-06-23] MEDS ORDERED: SODIUM CHLORIDE 0.9% 1,000 ML IV SCH (13:30)
--- NOTE | 2021-06-23 13:33 | P.CARDCATH ---
Date of Procedure: 06/23/21 Description of Procedure: Cardiac Catheterization: The patient is a 81-year-old female with history of hypertension, hyperlipidemia and diabetes mellitus who presented with symptoms of chest discomfort at rest. She had no acute ST segment changes and normal troponin. She was evaluated by Dr. Kwong Recommendations were made regarding cardiac catheterization, the risks and the complications were discussed with the patient who is in full understanding and agreement. Procedure Description: Patient was brought to cath lab radiology technician in fasting semi-sedated state after receiving Fentanyl and Benadryl achieiving moderate conscious sedated state. Using Xylocaine Anesthesia and Seldinger technique, a 6-[place]vian sheath was introduced in the right radial artery . Subsequently, selective coronary angiography performed using a 5-[place]vian 3.5 bend Michelle catheter. Multiple views of the coronary artery including hemiaxial views were obtained. The 5-[place]vian pigtail catheter was used to cross the aortic valve and LVEDP was calculated. Following that, catheter and sheath were removed. Hemostasis was obtained with deployment of TR band . There was no immediate complication. Patient was returned to room in stable condition. Of note, the patient received a total of 5000 units of intravenous heparin as well as intra-arterial verapamil. There was no immediate complications. Findings: Left main: This is a large sized vessel, trifurcating LAD, left circumflex and ramus intermedius. The left main has no high-grade stenosis. LAD: This is a large size vessel, giving rise to a large diagonal branch, the LAD and the diagonal branch have no evidence of high-grade stenosis Left circumflex: This is a dominant vessel, giving rise distally to a PDA and a PLV, the left circumflex has no evidence of high-grade stenosis. It gives rise to small obtuse marginal branches. Ramus intermedius: This is a large size vessel that has a 30-40% plaque proximally the rest of the vessel has no high-grade stenosis. RCA: This is a small nondominant vessel, at the takeoff of the acute marginal branch it has a 70% plaque, there is of the vessel is small in caliber. [Left] Ventriculogram: Was not performed Hemodynamics: There is no gradient across the aortic valve, LVEDP 8-12 mmHg Conclusion: 1. Moderate to significant disease in the mid small nondominant right 2. Mild disease in the ramus intermedius 3. Left dominance Recommendations: I have recommended medical therapy with maximizing her treatment. I do not believe that intervention is needed at this time. Depending on her progress further recommendations will be made. The findings and recommendations were discussed with the patient. Duration of sedation is 20 minutes.
[2021-06-23 13:40] VITALS: RESP 16
[2021-06-23] MEDS ORDERED: ISOSORBIDE MONONITRATE ER 30 MG TAB.ER.24H PO SCH (13:45)
--- NOTE | 2021-06-23 14:24 | P.PN ---
Subjective Progress Note Date: 06/23/21 Objective - Vital Signs Vital signs: Vital Signs Temp 98.1 F 06/23/21 01:30 Pulse 60 06/23/21 14:02 Resp 16 06/23/21 14:02 BP 142/64 06/23/21 14:02 Pulse Ox 96 06/23/21 14:02 Intake & Output 06/22/21 06/23/21 06/23/21 18:59 06:59 18:59 Intake Total 100 Balance 100 Weight 80.286 kg Intake: IV 100 - Labs CBC & Chem 7: 06/23/21 02:00 06/23/21 02:00 Labs: Abnormal Lab Results - Last 24 Hours (Table) 06/23/21 06/23/21 06/23/21 Range/Units 02:00 02:00 02:00 RBC 3.61 L (3.80-5.40) m/uL MCV 100.3 H (80.0-100.0) fL D-Dimer 2.79 H (<0.60) mg/L FEU Sodium 135 L (137-145) mmol/L BUN 24 H (7-17) mg/dL POC Glucose (mg/dL) (75-99) mg/dL 06/23/21 Range/Units 07:20 RBC (3.80-5.40) m/uL MCV (80.0-100.0) fL D-Dimer (<0.60) mg/L FEU Sodium (137-145) mmol/L BUN (7-17) mg/dL POC Glucose (mg/dL) 115 H (75-99) mg/dL
[2021-06-23 15:29] VITALS: BP 158/70; PULSE 54
--- NOTE | 2021-06-23 16:54 | P.DS ---
Providers Date of admission: 06/23/21 04:26 Expected date of discharge: 06/23/21 Attending physician: Bowen Meza MD Consults: 06/23/21 04:26 Consult Physician Routine Consulting Provider: Roberto Daniels Consult Reason/Comments: chest pain Do you want consulting provider notified?: Yes Primary care physician: Francesca Puga MD Hospital Course: Discharge Diagnosis: Chest pain, acute coronary event ruled out. Hypertension Hyperlipidemia Insulin-dependent diabetes mellitus Hypothyroidism Hospital Course: Patient is a very pleasant 81-year-old female with a past medical history of hypertension, hyperlipidemia, insulin-dependent diabetes mellitus, and hypothyroidism. She presented to the emergency department with a chief complaint of chest pain. Patient reports that over the past 3 days she has been experiencing intermittent substernal chest pain lasting anywhere from 1-2 minut es at a time and resolving without intervention. She denied having any associated symptoms or radiation of pain. She denied anything making this pain better or worse. States it just waxed and waned and presented whenever wanted and spontaneously went away movements later. She underwent full evaluation in the emergency department. EKG was completed showing normal sinus rhythm at 60 bpm with no noted T-wave abnormalities an ST depression in inferior leads II, III, and aVF.. Labs drawn revealing an unremarkable CMP and CBC. D-dimer elevated at 2.79. And troponin less than 0.012. A chest x-ray was completed negative for acute cardiopulmonary process, did reveal concerns of a T12 compression fracture and patient underwent CTA of chest for further evaluation. CTA was negative for a PE revealing only minimal fibrotic changes at the lung bases and and an old T-11 mild compression fracture. Patient was admitted under our services with consultation to cardiology. Troponins were trended all resulting in less than 0.012. Echocardiogram was completed revealing a normal EF between 60 and 65% with no significant valvular abnormalities. Hemoglobin A1c 5.9%. Patient underwent cardiac cath revealing moderate to significant disease in the mid small nondominant vessel of RCA, mild disease in the ramus intermedius, and left dominance. Cardiology recommending medical therapy and maximizing medical treatment. In addition to patient's daily medication regimen with aspirin, atorvastatin, and lisinopril. Isosorbide mononitrate has been added to cardiac medication regimen. Cardiology recommending following up outpatient. Patient is medically stable for discharge home at this time, patient to continue daily medication regimen along with the addition of Imdur and to follow-up with PCP and cardiology. Physical examination: Patient seen and examined at bedside. She denied having any chest pain or discomfort. Denied having any palpitations, shortness of breath, nausea, or experiencing any numbness/tingling/weakness/swelling in her extremities. Vital signs reviewed and stable. General: Nontoxic, no distress and appears stated age. Derm: Skin warm and dry, normal coloration for ethnicity. Head: Atraumatic, normocephalic and symmetric. Eyes: EOMs intact, no lid lag, and anicteric sclera Mouth: no lip lesions, mucus membranes moist Cardiovascular: regular rate and rhythm with normal S1S2, systolic murmur, positive posterior tibial pulses bilaterally, and cap refill < 2 seconds. Lungs: Respirations even, regular, and unlabored on room air. Lungs CTA bilaterally, no rhonchi, no rales, no wheezing, and no accessory muscle usage. Abdominal: soft, nontender to palpation, no guarding, no appreciable organomegaly Ext: ROM intact. No gross muscle atrophy, no edema, no contractures Neuro: Speech clear, face symmetrical and CN II-XII grossly intact with no noted focal neuro deficits Psych: Alert and oriented to person, place, time, and situation. Appropriate and pleasant affect. A total of 35 minutes of time were spent preparing this complex discharge summary. Patient Condition at Discharge: Stable Plan - Discharge Summary New Discharge Prescriptions: New Isosorbide Mononitrate ER [Imdur] 30 mg PO DAILY 30 Days #30 tablet Continue Lovastatin [Mevacor] 40 mg PO HS lisinopriL [Prinivil] 20 mg PO HS Levothyroxine Sodium [Synthroid] 68.5 mcg PO TU Cyanocobalamin [Vitamin B-12] 500 mcg PO HS Cholecalciferol (Vitamin D3) [Vitamin D3] 50 mcg PO W/BRKFST Cinnamon Bark [Cinnamon] 500 mg PO W/BRKFST Vitamin B Complex 1 cap PO W/BRKFST Ascorbic Acid [Vitamin C] 1,000 mg PO HS Potassium 99 mg PO W/BRKFST Magnesium 400 mg PO HS Vitamin E (Dl,Tocopheryl Acet) [Vitamin E (400 Iu = 180 mg)] 400 unit PO TID Ferrous Sulfate [Iron (65 MG Elemental)] 325 mg PO SUTUTHSA@0800 Biotin 5 mg PO W/BRKFST Insulin Glargine,Hum.rec.anlog [Toujeo Solostar] 12 units SQ HS Aspirin EC [Ecotrin Low Dose] 81 mg PO W/BRKFST Calcium Carbonate [Calcium] 600 mg PO W/BRKFST Turmeric Root Extract [Turmeric] 500 mg PO W/BRKFST Insulin Aspart [NovoLOG Flexpen] 7 units SQ W/SUPPER Levothyroxine Sodium [Synthroid] 137 mcg PO DAILY Insulin Aspart [NovoLOG Flexpen] 6 units SQ AC-BID@0800,1200 Discharge Medication List Levothyroxine Sodium [Synthroid] 68.5 mcg PO TU 06/10/14 [History] Lovastatin [Mevacor] 40 mg PO HS 06/10/14 [History] lisinopriL [Prinivil] 20 mg PO HS 06/10/14 [History] Ascorbic Acid [Vitamin C] 1,000 mg PO HS 11/10/18 [History] Cholecalciferol (Vitamin D3) [Vitamin D3] 50 mcg PO W/BRKFST 11/10/18 [History] Cinnamon Bark [Cinnamon] 500 mg PO W/BRKFST 11/10/18 [History] Cyanocobalamin [Vitamin B-12] 500 mcg PO HS 11/10/18 [History] Magnesium 400 mg PO HS 11/10/18 [History] Potassium 99 mg PO W/BRKFST 11/10/18 [History] Vitamin B Complex 1 cap PO W/BRKFST 11/10/18 [History] Vitamin E (Dl,Tocopheryl Acet) [Vitamin E (400 Iu = 180 mg)] 400 unit PO TID 11/10/18 [History] Aspirin EC [Ecotrin Low Dose] 81 mg PO W/BRKFST 06/23/21 [History] Biotin 5 mg PO W/BRKFST 06/23/21 [History] Calcium Carbonate [Calcium] 600 mg PO W/BRKFST 06/23/21 [History] Ferrous Sulfate [Iron (65 MG Elemental)] 325 mg PO SUTUTHSA@0800 06/23/21 [History] Insulin Aspart [NovoLOG Flexpen] 6 units SQ AC-BID@0800,1200 06/23/21 [History] Insulin Aspart [NovoLOG Flexpen] 7 units SQ W/SUPPER 06/23/21 [History] Insulin Glargine,Hum.rec.anlog [Toujeo Solostar] 12 units SQ HS 06/23/21 [History] Isosorbide Mononitrate ER [Imdur] 30 mg PO DAILY 30 Days #30 tablet 06/23/21 [Rx] Levothyroxine Sodium [Synthroid] 137 mcg PO DAILY 06/23/21 [History] Turmeric Root Extract [Turmeric] 500 mg PO W/BRKFST 06/23/21 [History] Follow up Appointment(s)/Referral(s): Francesca Puga MD [Primary Care Provider] - 1-2 days Francesca Jimenes MD [STAFF PHYSICIAN] - 1 Week (Dr. Jimenes office will call you with appt date/time.) Ian Leblanc DO [Doctor of Osteopathic Medicine] - 1 Week (may follow up for findings of old T11 compression fx) Patient Instructions/Handouts: After Radial Heart Catheterization (GEN), Left Heart Catheterization (DC) Activity/Diet/Wound Care/Special Instructions: Activity: No lifting/pushing/pulling greater than 5 lbs for 5 days with right arm. Remove dressing tomorrow (about 3pm). No need to re-dress. You may shower tomorrow after dressing removal. No soaking puncture site for 3 days (such as tub or swim). You may drive . Diet: Heart healthy and carb consistent diet. Avoid salts, or foods with hidden salts such as canned or boxed foods and frozen dinners. Extra salt makes your heart work harder and traps the fluid in your body for longer. Special Instructions: Take all of your medications as directed and remember to keep all of your doctor's appointments and follow-up as needed. Thank you for allowing us to participate in your care, it was truly a pleasure having you for our patient!!! Discharge Disposition: HOME SELF-CARE
[2021-06-23] MEDS ORDERED: lisinopriL 20 MG TAB PO SCH (21:00)
[2021-06-23] MEDS ORDERED: NON FORMULARY DRUG (Lovastatin 40 MG Tab) PO SCH (21:00)
[2021-06-24] MEDS ORDERED: HEPARIN SODIUM,PORCINE 10,000 UNIT in SODIUM CHLORIDE 0.9% 1,000 ML IRRIGATION PRN (07:00)
[2021-06-24] MEDS ORDERED: HEPARIN SODIUM,PORCINE 2,500 UNIT in SODIUM CHLORIDE 0.9% 250 ML IRRIGATION PRN (07:00)
[2021-06-24] MEDS ORDERED: ASPIRIN 325 MG TAB PO SCH (09:00)
[2021-06-24] MEDS ORDERED: ASPIRIN 81 MG PO SCH (09:00)
[2021-06-24] MEDS ORDERED: ATORVASTATIN 20 MG TAB PO SCH (21:00)
[2021-06-24] MEDS ORDERED: ATORVASTATIN 10 MG TAB PO SCH (21:00)
== END 2021-06-23 17:30 | disposition home or self-care (01) ==
LOC: EC 01:29 → 6NMEDSUR 04:26
PROVIDERS: ADMIT Internal Medicine; ATTEND Internal Medicine
DX: R07.2 Precordial pain (principal); R79.89 Other specified abnormal findings of blood chemistry; I10 Essential (primary) hypertension; E78.5 Hyperlipidemia, unspecified; E03.9 Hypothyroidism, unspecified; I25.110 Atherosclerotic heart disease of native coronary artery with unstable angina pectoris; E11.51 Type 2 diabetes mellitus with diabetic peripheral angiopathy without gangrene; R01.1 Cardiac murmur, unspecified; I83.90 Asymptomatic varicose veins of unspecified lower extremity; D68.51 Activated protein C resistance; I08.1 Rheumatic disorders of both mitral and tricuspid valves; E66.9 Obesity, unspecified; Z68.32 Body mass index [BMI] 32.0-32.9, adult; E78.00 Pure hypercholesterolemia, unspecified; Z71.9 Counseling, unspecified; Z71.3 Dietary counseling and surveillance; Z91.013 Allergy to seafood; Z91.048 Other nonmedicinal substance allergy status; Z90.710 Acquired absence of both cervix and uterus; Z90.49 Acquired absence of other specified parts of digestive tract; Z95.828 Presence of other vascular implants and grafts; Z96.653 Presence of artificial knee joint, bilateral; Z79.4 Long term (current) use of insulin; Z79.82 Long term (current) use of aspirin; Z79.890 Hormone replacement therapy; Z79.899 Other long term (current) drug therapy; Z80.3 Family history of malignant neoplasm of breast; Z83.2 Family history of diseases of the blood and blood-forming organs and certain disorders involving the immune mechanism; Z80.8 Family history of malignant neoplasm of other organs or systems
CPT/HCPCS: 96376; 96374; 99285; 36415; 93005; 93306; 93458; 85379; 80053; 83735; 84484; 85025; 85610; 85730; 83036; 71046; 71275; G0378; C1894; C1769; J2250; J2001; J3010; J1644 ×3; Q9967 ×2

== ENCOUNTER → 2021-09-23 | Outpatient (CLI) | payer MEDICARE ==
--- NOTE | 2021-09-23 13:22 | XR ---
EXAMINATION TYPE: XR Hip Bilateral and AP pelvis DATE OF EXAM: 09/23/2021 COMPARISON: NONE HISTORY: Pain TECHNIQUE: A single AP view of the pelvis is obtained. Two views of the bilateral hip are obtained. FINDINGS: There is no acute fracture/dislocation evident in the pelvis. Severe arthropathy of the hi ps bilaterally. Surgical changes in the right inguinal region. Degenerative and hypertrophic changes of the visualized vertebral column. Spurring along the bilateral lower margin of the greater trochanter. IMPRESSION: 1. Severe bilateral hip arthropathy.
== END | disposition home or self-care (01) ==
LOC: RADXRMAIN 12:56
PROVIDERS: ATTEND Internal Medicine
DX: M12.852 Other specific arthropathies, not elsewhere classified, left hip (principal); M12.851 Other specific arthropathies, not elsewhere classified, right hip
CPT/HCPCS: 73521

== ENCOUNTER → 2021-10-17 | Outpatient (CLI) | payer MEDICARE ==
[2021-10-17 17:32] LABS: ALT 16 U/L (8-44); AST 24 U/L (13-35); African American GFR (CKD) 55.3 (60.0-200.0); Albumin 4.3 g/dL (3.8-4.9); Albumin/Globulin Ratio 1.79 (1.60-3.17); Alkaline Phosphatase 67 U/L (41-126); BUN/Creat Ratio 16.36 Ratio (12.00-20.00); Calcium 9.5 mg/dL (8.7-10.3); Chloride 102 mmol/L (96-109); Chol/HDL Ratio 2.31 Ratio; Globulin 2.4 g/dL (1.6-3.3); Glucose 112 mg/dL (70-110); LDL Cholesterol,Calculated 67.8 mg/dL (0.0-131.0); Non-African American GFR(CKD) 47.7 (60.0-200.0); Potassium 4.3 mmol/L (3.5-5.5); Sodium 139 mmol/L (135-145); Total Protein 6.7 g/dL (6.2-8.2)
== END | disposition home or self-care (01) ==
LOC: LABWHC1 09:28
PROVIDERS: ATTEND Internal Medicine Interventional Cardiology
DX: E78.2 Mixed hyperlipidemia (principal)
CPT/HCPCS: 36415; 80053; 80061

== ENCOUNTER → 2022-04-15 | Outpatient (CLI) | payer MEDICARE ==
--- NOTE | 2022-04-17 16:14 | MM ---
Reason for Exam: Screening (asymptomatic). Last mammogram was performed 1 year(s) and 1 month(s) ago. Patient History: Menarche at age 13. First Full-Term at age 23. Left ovary removed at age 38. Right ovary removed at age 38. Hysterectomy at age 38. Postmenopausal. Hormonal Contraceptives for 6 months. 1979, Cyst Aspiration on the Left side. 1979, Excisional Biopsy on the Left side. 1979, Excisional Biopsy on the Left side. 05/18/2006, Benign Core Biopsy on the right side. Maternal aunt had breast cancer. Maternal aunt had breast cancer. Sister had breast cancer, age 60. Risk Values: Cherie 5 year model risk: 5.3%. NCI Lifetime model risk: 8.7%. Prior Study Comparison: 09/26/2018 Bilateral Screening Mammogram, [facility]. 01/02/2020 Bilateral Screening Mammogram, [facility]. 03/24/2021 Bilateral Screening Mammogram, [facility]. Tissue Density: There are scattered fibroglandular densities. Findings: Analyzed By CAD. Unchanged small history tail lymph node on the left. Microclip right breast from prior biopsy. There is no suspicious group of microcalcifications or new suspicious mass in either breast. Overall Assessment: Benign, BI-RAD 2 Management: Screening Mammogram of both breasts in 1 year. 1. Patient should continue monthly self breast exams. 2. A clinical breast exam by your physician is recommended on an annual basis. 3. This exam should not preclude additional follow-up of suspicious palpable abnormalities. Electronically signed and approved by: Julee Snow M.D. Radiologist
== END | disposition home or self-care (01) ==
LOC: RADMAMWWP 11:46
PROVIDERS: ATTEND Internal Medicine
DX: Z12.31 Encounter for screening mammogram for malignant neoplasm of breast (principal); Z78.0 Asymptomatic menopausal state; Z80.3 Family history of malignant neoplasm of breast
CPT/HCPCS: 77063; 77067

== ENCOUNTER → 2022-07-28 | Outpatient (CLI) | payer MEDICARE ==
[2022-07-28 15:27] LABS: Basophils # (A) 0.03 X 10*3/uL (0.00-0.10); Basophils % (A) 0.8 %; Eosinophils # (A) 0.08 X 10*3/uL (0.04-0.35); Eosinophils % (A) 2.1 %; HCT 35.6 % (37.2-46.3); HGB 11.5 g/dL (12.0-15.0); Immature Grans, Automated 0.3 %; Lymphocytes # (A) 1.69 X 10*3/uL (0.90-5.00); Lymphocytes % (A) 44.5 %; MCH 32.7 pg (27.0-32.0); MCHC 32.3 g/dL (32.0-37.0); MCV 101.1 fL (80.0-97.0); Mean Platelet Volume 9.5 fL (9.5-12.2); Monocytes # (A) 0.39 X 10*3/uL (0.20-1.00); Monocytes % (A) 10.3 %; NRBC Per 100 WBC 0 /100 WBCS (0.0-0.0); Platelet Count 152 X 10*3/uL (140-440); RBC 3.52 X 10*6/uL (4.10-5.20); RDW 13.6 % (11.5-14.5)
[2022-07-28 16:20] LABS: Protein, Total 6.7 g/dL (6.2-8.2)
[2022-07-28 16:27] LABS: ALT 15 U/L (8-44); AST 26 U/L (13-35); African American GFR (CKD) 61.6 (60.0-200.0); Albumin 4.5 g/dL (3.8-4.9); Albumin/Globulin Ratio 2.05 (1.60-3.17); Alkaline Phosphatase 65 U/L (41-126); Blood Urea Nitrogen 17.2 mg/dL (9.0-27.0); Calcium 10.3 mg/dL (8.7-10.3); Carbon Dioxide 27.1 mmol/L (20.0-27.5); Chloride 99 mmol/L (96-109); Chol/HDL Ratio 2.92 Ratio; Globulin 2.2 g/dL (1.6-3.3); Glucose 96 mg/dL (70-110); LDL Cholesterol,Calculated 134.5 mg/dL (0.0-131.0); Non-African American GFR(CKD) 53.2 (60.0-200.0); Potassium 4.5 mmol/L (3.5-5.5); Sodium 140 mmol/L (135-145); Total Protein 6.7 g/dL (6.2-8.2)
[2022-07-29 01:03] LABS: Urine Creatinine 38.1 mg/dL (28.0-217.0)
[2022-07-29 19:40] LABS: Albumin 4.25 g/dL (3.80-4.90); Gamma Globulin 0.77 g/dL (0.70-1.50)
[2022-07-30 11:38] LABS: Free Kappa Lt Chain Qnt, Serum 2.84 mg/dL (0.33-1.94); Free Lambda Lt Chain Qnt, Seru 2.07 mg/dL (0.57-2.63)
== END | disposition home or self-care (01) ==
LOC: LABWHC1 08:19
PROVIDERS: ATTEND Internal Medicine
DX: E03.9 Hypothyroidism, unspecified (principal); E78.2 Mixed hyperlipidemia; E11.22 Type 2 diabetes mellitus with diabetic chronic kidney disease; N18.2 Chronic kidney disease, stage 2 (mild); D53.9 Nutritional anemia, unspecified
CPT/HCPCS: 36415; 80053; 80061; 82043; 82570; 83036; 83883; 83970; 84165; 84439; 84443; 85025

== ENCOUNTER → 2022-10-27 | Outpatient (CLI) | payer MEDICARE ==
[2022-10-27 17:30] LABS: ALT 14 U/L (8-44); AST 24 U/L (13-35); LDL Cholesterol,Calculated 95.7 mg/dL (0.0-131.0); VLDL Calculation 12.68 mg/dL (5.00-40.00)
== END | disposition home or self-care (01) ==
LOC: LABWHC1 08:27
PROVIDERS: ATTEND Internal Medicine Interventional Cardiology
DX: E78.2 Mixed hyperlipidemia (principal)
CPT/HCPCS: 36415; 80061; 84450; 84460